=== PATIENT | female | born 1975 | race African-American/Black ===

== ENCOUNTER 2017-12-26 16:21 | Inpatient (IN) | payer MEDICAID, OTHER ==
[~2017-12-26] VITALS: Ht 172.7 cm; Wt 88.5 kg
[2017-12-26] MEDS ORDERED: ACETAMINOPHEN 325MG TABLET PO STA (16:57)
[2017-12-26] MEDS ORDERED: SODIUM CHLORIDE 0.9% 1000ML BAG (SEPSIS BOLUS) IV ONE (17:00)
[2017-12-26 17:58] LABS: PROTHROMBIN TIME 9.8 sec (9.1-11.1)
[2017-12-26 18:01] LABS: HCG SCREEN NEGATIVE; HEMATOCRIT. 24.8 % (36.0-48.0); HEMOGLOBIN. 7.7 g/dL (12.0-16.0); MEAN CORPUSCULAR HEMOGLOBIN 18.4 pg (28.0-32.0); MEAN CORPUSCULAR VOLUME 59.4 fL (81.0-99.0); MEAN PLATELET VOLUME 10.4 fl (7.4-10.4); PLATELET 119 x1000/uL (130-400); RED BLOOD CELL COUNT 4.17 mill/uL (4.2-5.4); RED CELL DISTRIBUTION WIDTH 20.3 % (11.6-14.6)
[2017-12-26 18:04] LABS: CHLORIDE 104 mEq/L (98-107)
[2017-12-26 18:11] LABS: CLARITY URINE CLOUDY (CLEAR); COLOR URINE YELLOW (YELLOW); KETONES URINE NEGATIVE (NEGATIVE); LEUKOCYTE ESTERASE URINE 3+ (NEGATIVE); NITRITE URINE NEGATIVE (NEGATIVE); OCCULT BLOOD URINE 2+ (NEGATIVE); PH URINE 7.5 (4.5-8.0); PROTEIN URINE 2+ (NEGATIVE); SPECIFIC GRAVITY URINE 1.013 (1.005-1.030)
[2017-12-26 18:22] LABS: PLATELET ESTIMATE DECREASED
[2017-12-26] MEDS ORDERED: POTASSIUM CHLORIDE 20MEQ TABLET SR PO NR (18:30)
[2017-12-26] MEDS ORDERED: PIPERACILLIN/TAZ 3.375G PREMIX 50 ML IV NR (18:30)
[2017-12-26] MEDS ORDERED: KCL 10MEQ/50ML PREMIX 50 ML IV NR (18:30)
[2017-12-26] MEDS ORDERED: IBUPROFEN 400MG TABLET PO ONE (19:30)
[2017-12-26 22:05] VITALS: BP 125/83
[2017-12-26] MEDS ORDERED: ONDANSETRON HCL 4MG/2ML INJ IV PRN (23:00)
[2017-12-27] VITALS (10 sets, daily range): BP systolic 107–146; BP diastolic 68–99
[2017-12-27] MEDS: SODIUM CHL 0.45% + KCL 20MEQ/L 1,000 ML IV SCH ×2 (00:50→15:00)
[2017-12-27] MEDS: CEFTRIAXONE 1 G PREMIX 50 ML IV SCH (01:01)
[2017-12-27] MEDS: HYDROCODONE/ACETAMINOPHEN 10/325MG TABLET PO PRN ×2 (02:17→11:15)
[2017-12-27] MEDS ORDERED: PNEUMOCOCCAL 23-VAL P-SAC VAC 0.5 ML IM ONE (02:45)
[2017-12-27] MEDS ORDERED: INFLUENZA VIRUS VACCINE(AFLURIA) 0.5ML SYR IM ONE (02:45)
[2017-12-27 07:18] LABS: HEMATOCRIT. 22.2 % (36.0-48.0); MEAN CORPUSCULAR HEMOGLOBIN 18.6 pg (28.0-32.0); MEAN CORPUSCULAR VOLUME 59.9 fL (81.0-99.0); RED CELL DISTRIBUTION WIDTH 21.1 % (11.6-14.6)
[2017-12-27 07:57] LABS: HEMOGLOBIN. 6.9 g/dL (12.0-16.0)
[2017-12-27 09:41] LABS: PLATELET ESTIMATE SLIGHTLY DECREASED
[2017-12-27 09:44] LABS: PLATELET 96 x1000/uL (130-400)
[2017-12-27] MEDS: ACETAMINOPHEN 325MG TABLET PO PRN ×2 (13:03→20:06)
[2017-12-27 16:44] LABS: HEMATOCRIT 23.5 % (36.0-48.0); HEMOGLOBIN 7.4 g/dL (12.0-16.0)
[2017-12-28] VITALS (10 sets, daily range): BP systolic 118–145; BP diastolic 71–96
[2017-12-28] MEDS: CEFTRIAXONE 1 G PREMIX 50 ML IV SCH (00:02)
[2017-12-28] MEDS: HYDROCODONE/ACETAMINOPHEN 10/325MG TABLET PO PRN ×2 (02:14→15:30)
[2017-12-28] MEDS: SODIUM CHL 0.45% + KCL 20MEQ/L 1,000 ML IV SCH ×2 (04:50→22:21)
[2017-12-28 06:20] LABS: HEMATOCRIT. 22.1 % (36.0-48.0); MEAN CORPUSCULAR HEMOGLOBIN 19.5 pg (28.0-32.0); MEAN CORPUSCULAR VOLUME 61.7 fL (81.0-99.0); MEAN PLATELET VOLUME 10.6 fl (7.4-10.4); PLATELET 88 x1000/uL (130-400); RED BLOOD CELL COUNT 3.59 mill/uL (4.2-5.4); RED CELL DISTRIBUTION WIDTH 23.2 % (11.6-14.6)
[2017-12-28] MEDS: ACETAMINOPHEN 325MG TABLET PO PRN (09:58)
[2017-12-28 10:50] LABS: PLATELET ESTIMATE DECREASED
[2017-12-28] MEDS ORDERED: OMEPRAZOLE 20MG CAPSULE EXTENDED RELEASE PO NR (12:45)
[2017-12-28] MEDS ORDERED: MAGNESIUM/ALUMINUM HYDROXIDE/SIMETHICONE 30ML UDC PO PRN (15:00)
[2017-12-28] MEDS ORDERED: ONDANSETRON HCL 4MG/2ML INJ IV PRN (15:00)
[2017-12-28 15:27] LABS: HEMATOCRIT 28.1 % (36.0-48.0); HEMOGLOBIN 9.1 g/dL (12.0-16.0)
[2017-12-28 23:17] LABS: HEMATOCRIT 26.8 % (36.0-48.0); HEMOGLOBIN 8.8 g/dL (12.0-16.0)
[2017-12-29] VITALS: BP 123/78
[2017-12-29] MEDS: CEFTRIAXONE 1 G PREMIX 50 ML IV SCH (00:13)
[2017-12-29 04:00] VITALS: BP 130/86
[2017-12-29] MEDS: OMEPRAZOLE 20MG CAPSULE EXTENDED RELEASE PO SCH (06:34)
[2017-12-29] MEDS ORDERED: OMEPRAZOLE 20MG CAPSULE EXTENDED RELEASE PO SCH (07:10)
[2017-12-29 08:00] VITALS: BP 144/88
[2017-12-29 08:03] LABS: INR 0.9; PARTIAL THROMBOPLASTIN TIME 28.8 sec (23.4-31.0); PROTHROMBIN TIME 9.4 sec (9.1-11.1)
[2017-12-29 08:09] LABS: HEMATOCRIT. 25.5 % (36.0-48.0); MEAN CORPUSCULAR HEMOGLOBIN 21.4 pg (28.0-32.0); MEAN CORPUSCULAR VOLUME 64.5 fL (81.0-99.0); MEAN PLATELET VOLUME 10.3 fl (7.4-10.4); PLATELET 111 x1000/uL (130-400); RED BLOOD CELL COUNT 3.95 mill/uL (4.2-5.4); RED CELL DISTRIBUTION WIDTH 27.1 % (11.6-14.6)
[2017-12-29 08:15] LABS: HEMOGLOBIN. 8.5 g/dL (12.0-16.0)
[2017-12-29] MEDS: IRON SUCROSE COMPLEX 100 MG/5 ML ML IV SCH (11:42)
[2017-12-29 12:00] VITALS: BP 130/90
[2017-12-29] MEDS: SODIUM CHL 0.45% + KCL 20MEQ/L 1,000 ML IV SCH (12:01)
[2017-12-29 16:00] VITALS: BP 145/95
[2017-12-29 16:41] LABS: HEMATOCRIT 26.6 % (36.0-48.0); HEMOGLOBIN 8.6 g/dL (12.0-16.0)
[2017-12-29 17:24] LABS: PLATELET ESTIMATE DECREASED
[2017-12-29 20:00] VITALS: BP 149/93
[2017-12-29] MEDS: ACETAMINOPHEN 325MG TABLET PO PRN (20:15)
[2017-12-30 00:01] VITALS: BP 137/90
[2017-12-30] MEDS: CEFTRIAXONE 1 G PREMIX 50 ML IV SCH (00:24)
[2017-12-30] MEDS: SODIUM CHL 0.45% + KCL 20MEQ/L 1,000 ML IV SCH ×2 (00:24→07:00)
[2017-12-30] MEDS: HYDROCODONE/ACETAMINOPHEN 10/325MG TABLET PO PRN (00:35)
[2017-12-30 04:00] VITALS: BP 132/87
[2017-12-30 06:38] LABS: HEMATOCRIT 26.9 % (36.0-48.0); HEMOGLOBIN 8.7 g/dL (12.0-16.0); MEAN CORPUSCULAR HEMOGLOBIN 20.9 pg (28.0-32.0); MEAN CORPUSCULAR VOLUME 64.7 fL (81.0-99.0); PLATELET 151 x1000/uL (130-400); RED BLOOD CELL COUNT 4.17 mill/uL (4.2-5.4); RED CELL DISTRIBUTION WIDTH 27.4 % (11.6-14.6)
[2017-12-30] MEDS: OMEPRAZOLE 20MG CAPSULE EXTENDED RELEASE PO SCH (06:47)
[2017-12-30 08:00] VITALS: BP 143/91
[2017-12-30] MEDS: IRON SUCROSE COMPLEX 100 MG/5 ML ML IV SCH (08:31)
[2017-12-30 12:00] VITALS: BP 151/79
[2017-12-30 13:40] VITALS: BP 151/79
== END 2017-12-30 15:45 | disposition home or self-care (01) | DRG 720 ==
LOC: ER 16:21 → 8WST 21:19 → EDBEDREQ 21:24 → EDBEDREQTM 21:24 → ENRESERV 21:26
PROVIDERS: ADMIT Internal Medicine; ATTEND Internal Medicine
PROC: 30233N1 Transfusion of Nonautologous Red Blood Cells into Peripheral Vein, Percutaneous Approach (ICD-10-PCS; principal; 2017-12-27)
DX: A41.51 Sepsis due to Escherichia coli [E. coli] (principal); N17.9 Acute kidney failure, unspecified; D69.6 Thrombocytopenia, unspecified; K29.71 Gastritis, unspecified, with bleeding; N13.30 Unspecified hydronephrosis; E44.1 Mild protein-calorie malnutrition; E86.0 Dehydration; N12 Tubulo-interstitial nephritis, not specified as acute or chronic; D63.8 Anemia in other chronic diseases classified elsewhere; D50.9 Iron deficiency anemia, unspecified; F17.210 Nicotine dependence, cigarettes, uncomplicated; N28.82 Megaloureter; K44.9 Diaphragmatic hernia without obstruction or gangrene; E87.6 Hypokalemia; K21.9 Gastro-esophageal reflux disease without esophagitis; N18.2 Chronic kidney disease, stage 2 (mild); R19.7 Diarrhea, unspecified; Z68.29 Body mass index [BMI] 29.0-29.9, adult; Z82.49 Family history of ischemic heart disease and other diseases of the circulatory system; Z83.3 Family history of diabetes mellitus; Z80.9 Family history of malignant neoplasm, unspecified
CPT/HCPCS: 36415; 71045; 74176; 76700; 80048; 82607; 82728; 82746; 83540; 83550; 83605; 83735; 84145; 84484; 84703; 85014; 85018; 85027; 85044; 86850; 86900; 86920; 87077; 87186; 87804; 93005; 96361; 96365; 99291; J0696; J2405; J2543; J3480; J7030; J7040; J7050; P9016